=== PATIENT | female | born 1995 | race Caucasian/White ===

== ENCOUNTER 2017-04-28 17:02 | Inpatient (IN) | payer MEDICAID ==
[~2017-04-28] VITALS: Ht 157.5 cm; Wt 81.5 kg
[2017-04-28 16:45] VITALS: BP 107/70
[~2017-04-28 17:02] MED LIST: IBUP-1222 PO; OXYC-302 PO
[2017-04-28] MEDS ORDERED: SODIUM CHLORIDE 0.9%, 500ML IVBOLUS ONE (17:30)
[2017-04-28 17:58] LABS: HCG UR SG 1.023 (1.003-1.030)
[2017-04-28] MEDS ORDERED: ALBUTEROL SULFATE 2.5 MG/3 ML NPPB PRN (18:00)
[2017-04-28] MEDS ORDERED: ONDANSETRON 2MG/ML, 2ML IV PRN (18:00)
[2017-04-28] MEDS ORDERED: OXYcodone IR 5MG TABLET PO PRN (18:00)
[2017-04-28] MEDS ORDERED: SODIUM CHLORIDE 0.9% 1,000ML IVBOLUS ONE (18:00)
[2017-04-28] MEDS ORDERED: AMPICILLIN/SULBACTAM 3 GM in SODIUM CHLORIDE 0.9% 100 ML IV SCH (18:00)
[2017-04-28 18:27] LABS: MEAN CORPUSCULAR HEMOGLOBIN 29.1 pg (27.0-34.8); MEAN CORPUSCULAR HGB CONC 33.9 g/dL (32.4-35.8); MEAN CORPUSCULAR VOLUME 85.6 fL (80-100); MEAN PLATELET VOLUME 9.1 fL (7.4-10.4); PLATELET COUNT 231 x10^3/uL (130-400); RED BLOOD COUNT 4.36 x10^6/uL (3.82-5.3); RED CELL DISTRIBUTION WIDTH 14.1 % (9.6-15.2)
[2017-04-28 18:36] LABS: ALBUMIN 3.4 g/dL (3.4-5.0); ANION GAP 10 mmol/L (5-15); CALCIUM 8.1 mg/dL (8.5-10.1); CHLORIDE 111 mmol/L (98-107)
[2017-04-28 18:41] LABS: ALANINE AMINOTRANSFERASE 32 U/L (12-78); ALKALINE PHOSPHATASE 103 U/L (45-117); BILIRUBIN,TOTAL 1.4 mg/dL (0.2-1.0); CREATININE 0.68 mg/dL (0.55-1.02); TOTAL PROTEIN 7.3 g/dL (6.4-8.2)
[2017-04-28 18:47] LABS: MD YES
[2017-04-28 18:50] LABS: <PLATELET ESTIMATE> ADEQUATE; <PLT MORPHOLOGY> NORMAL PLT MORPH; <RBC MORPHOLOGY> NORMAL; BAND#(MANUAL) 3.36 x10^3/uL; BANDS%(MANUAL) 15 % (0-7); LYMPH#(MANUAL) 0.67 x10^3/uL (1-3.4); LYMPHS% (MANUAL) 3 % (22-44); MONOS#(MANUAL) 0.67 x10^3/uL (0.3-2.7); MONOS% (MANUAL) 3 % (2-9); SEGS% (MANUAL) 79 % (42-75)
[2017-04-28 19:45] VITALS: BP 97/61
[2017-04-28] MEDS: AMPICILLIN/SULBACTAM 3 GM in SODIUM CHLORIDE 0.9% 100 ML IV SCH (19:49)
[2017-04-28] MEDS ORDERED: PROMETHAZINE 25 MG SUPP PR PRN (21:00)
[2017-04-28] MEDS ORDERED: HYDROmorphone 2 MG/ML, 1ML ONE (21:07)
[2017-04-28] MEDS ORDERED: PROCHLORPERAZINE 25 MG SUPP PR ONE (21:08)
[2017-04-28] MEDS: LACTATED RINGERS 1,000 ML IV SCH (21:13)
[2017-04-28] MEDS: HYDROmorphone 1 MG/ML, 1ML IV PRN (21:13)
[2017-04-28] MEDS ORDERED: OMNIPAQUE 350 MG/ML, 100ML BOTTLE ONE (23:54)
[2017-04-29] MEDS ORDERED: HYDROmorphone 2 MG/ML, 1ML ONE ×3 (00:57→11:50)
[2017-04-29] MEDS: HYDROmorphone 1 MG/ML, 1ML IV PRN ×3 (01:01→11:53)
[2017-04-29] MEDS: AMPICILLIN/SULBACTAM 3 GM in SODIUM CHLORIDE 0.9% 100 ML IV SCH ×4 (02:13→23:37)
[2017-04-29 03:03] LABS: MICROSCOPIC INDICATED
[2017-04-29 04:05] VITALS: BP 98/55
[2017-04-29] MEDS: ACETAMINOPHEN 325 MG TABLET PO PRN (04:18)
[2017-04-29 04:22] LABS: HCT (SEDRATE) 33.6 % (34.6-47.8)
[2017-04-29 07:24] VITALS: BP 84/54
[2017-04-29] MEDS: LACTATED RINGERS 1,000 ML IV SCH (08:49)
[2017-04-29] MEDS ORDERED: D5%-LACTATED RINGERS 1,000 ML IV SCH (09:00)
[2017-04-29] MEDS ORDERED: SUCCINYLCHOLINE 20 MG/ML, 10ML ONE (10:46)
[2017-04-29] MEDS ORDERED: PROPOFOL 10 MG/ML, 20ML ONE (10:46)
[2017-04-29] MEDS ORDERED: ROCURONIUM 10 MG/ML,10ML ONE (10:46)
[2017-04-29] MEDS ORDERED: DEXAMETHASONE 4 MG/ML, 1ML ONE (10:46)
[2017-04-29] MEDS ORDERED: ONDANSETRON 2MG/ML, 2ML ONE (10:46)
[2017-04-29] MEDS ORDERED: KETOROLAC 30 MG/1 ML ONE (10:46)
[2017-04-29] MEDS ORDERED: EPINEPHRINE 1 MG/ML, 1ML ONE (13:34)
[2017-04-29] MEDS ORDERED: LIDOCAINE 1%, 20ML ONE (13:34)
[2017-04-29] MEDS ORDERED: VASOPRESSIN 20 UNIT/ML, 1ML ONE (13:35)
[2017-04-29] MEDS ORDERED: OXYTOCIN 10 UNITS/ML, 1ML ONE (13:43)
[2017-04-29] MEDS ORDERED: METHYLERGONOVINE 0.2 MG/ML IM ONE (13:43)
[2017-04-29] MEDS ORDERED: MISOPROSTOL 200 MCG TABLET ONE (13:44)
[2017-04-29] MEDS ORDERED: FENTANYL PF 100 MCG/2ML ONE (14:38)
[2017-04-29] MEDS ORDERED: MIDAZOLAM 1 MG/ML, 2ML ONE (14:39)
[2017-04-29] MEDS ORDERED: LABETALOL 5MG/ML, 20ML IV PRN (15:00)
[2017-04-29] MEDS ORDERED: PROMETHAZINE 12.5 MG SUPP PR PRN (15:00)
[2017-04-29] MEDS ORDERED: MIDAZOLAM 1 MG/ML, 2ML IV PRN (15:00)
[2017-04-29] MEDS ORDERED: ACETAMINOPHEN 325 MG TABLET PO PRN (15:00)
[2017-04-29] MEDS ORDERED: OXYcodone 5 MG/5 ML ORAL.SOL UDC PO PRN ×2 (15:00→17:30)
[2017-04-29] MEDS ORDERED: HYDROmorphone 1 MG/ML, 1ML IV PRN ×3 (15:00→17:30)
[2017-04-29] MEDS ORDERED: ONDANSETRON 2MG/ML, 2ML IVPush PRN (15:00)
[2017-04-29] MEDS ORDERED: hydrALAzine 20 MG/ML, 1ML IV PRN (15:00)
[2017-04-29] MEDS ORDERED: FENTANYL PF 100 MCG/2ML IV PRN (15:00)
[2017-04-29] MEDS ORDERED: MEPERIDINE/PF 25MG/0.5ML IVPush PRN (15:00)
[2017-04-29] MEDS ORDERED: ALBUTEROL SULFATE 2.5 MG/3 ML NPPB PRN (15:00)
[2017-04-29] MEDS ORDERED: OXYcodone 5 MG/5 ML ORAL.SOL UDC ONE (16:09)
[2017-04-29] MEDS ORDERED: ACETAMINOPHEN 650 MG/20.3 ML UDC ONE (16:09)
[2017-04-29] MEDS ORDERED: KETOROLAC 30 MG/1 ML IV PRN (17:30)
[2017-04-29] MEDS: D5%-LACTATED RINGERS 1,000 ML IV SCH (17:30)
[2017-04-29] MEDS ORDERED: PROMETHAZINE 25 MG SUPP PR ONE (17:30)
[2017-04-29] MEDS ORDERED: ONDANSETRON 2MG/ML, 2ML IV PRN (17:30)
[2017-04-29] MEDS: KETOROLAC 30 MG/1 ML IV SCH ×2 (17:41→23:37)
[2017-04-29 19:48] VITALS: BP_SYST 102; BP_SYST 121; BP_DIAS 67; BP_DIAS 81
[2017-04-30] MEDS: D5%-LACTATED RINGERS 1,000 ML IV SCH ×2 (00:47→10:19)
[2017-04-30 01:26] VITALS: BP 94/62
[2017-04-30] MEDS: AMPICILLIN/SULBACTAM 3 GM in SODIUM CHLORIDE 0.9% 100 ML IV SCH ×4 (05:34→23:36)
[2017-04-30] MEDS: KETOROLAC 30 MG/1 ML IV SCH ×2 (05:34→14:44)
[2017-04-30 07:05] VITALS: BP 93/62
[2017-04-30 07:43] LABS: BASOPHILS # (AUTO) 0.04 x10^3/uL (0-0.1); BASOPHILS % (AUTO) 0 % (0-1); EOSINOPHILS % (AUTO) 0 % (1-7); LYMPHOCYTES # (AUTO) 1.59 x10^3/uL (1-3.4); LYMPHOCYTES % (AUTO) 10 % (22-44); MD SCAN; MEAN CORPUSCULAR HEMOGLOBIN 29.3 pg (27.0-34.8); MEAN CORPUSCULAR HGB CONC 33.6 g/dL (32.4-35.8); MEAN PLATELET VOLUME 9.4 fL (7.4-10.4); MONOCYTES # (AUTO) 0.87 x10^3/uL (0.2-0.8); MONOCYTES % (AUTO) 6 % (2-9); NEUTROPHILS # (AUTO) 13.12 x10^3/uL (1.8-6.8); NEUTROPHILS % (AUTO) 84 % (42-75); PLATELET COUNT 108 x10^3/uL (130-400); RED CELL DISTRIBUTION WIDTH 14.5 % (9.6-15.2)
[2017-04-30 14:18] VITALS: BP 101/66
[2017-04-30 19:32] VITALS: BP 97/62
[2017-04-30] MEDS: SODIUM CHLORIDE FLUSH 10ML SYR IVF SCH (20:38)
[2017-04-30] MEDS: ACETAMINOPHEN 325 MG TABLET PO PRN (23:35)
[2017-05-01 02:04] VITALS: BP 101/64
[2017-05-01] MEDS: AMPICILLIN/SULBACTAM 3 GM in SODIUM CHLORIDE 0.9% 100 ML IV SCH ×4 (05:08→22:43)
[2017-05-01 08:30] VITALS: BP 107/71
[2017-05-01] MEDS: SODIUM CHLORIDE FLUSH 10ML SYR IVF SCH ×2 (10:14→21:00)
[2017-05-01 11:36] LABS: CHLORIDE 113 mmol/L (98-107)
[2017-05-01 11:37] LABS: ALANINE AMINOTRANSFERASE 25 U/L (12-78); ALBUMIN 2.3 g/dL (3.4-5.0); ANION GAP 6 mmol/L (5-15); CALCIUM 7.8 mg/dL (8.5-10.1); CREATININE 0.64 mg/dL (0.55-1.02)
[2017-05-01 11:39] LABS: ALKALINE PHOSPHATASE 70 U/L (45-117); BILIRUBIN,TOTAL 0.2 mg/dL (0.2-1.0); TOTAL PROTEIN 5.5 g/dL (6.4-8.2)
[2017-05-01 11:48] LABS: MEAN CORPUSCULAR HEMOGLOBIN 28.8 pg (27.0-34.8); MEAN CORPUSCULAR HGB CONC 33.5 g/dL (32.4-35.8); MEAN CORPUSCULAR VOLUME 86.1 fL (80-100); MEAN PLATELET VOLUME 9.9 fL (7.4-10.4); PLATELET COUNT 173 x10^3/uL (130-400); RED BLOOD COUNT 3.34 x10^6/uL (3.82-5.3); RED CELL DISTRIBUTION WIDTH 14.5 % (9.6-15.2)
[2017-05-01 11:49] LABS: MD YES
[2017-05-01 11:51] LABS: BAND#(MANUAL) 0.43 x10^3/uL; BANDS%(MANUAL) 3 % (0-7); LYMPH#(MANUAL) 2.72 x10^3/uL (1-3.4); LYMPHS% (MANUAL) 19 % (22-44); MONOS#(MANUAL) 0.14 x10^3/uL (0.3-2.7); MONOS% (MANUAL) 1 % (2-9); SEG#(MANUAL) 11.01 x10^3/uL (1.8-6.8); SEGS% (MANUAL) 77 % (42-75)
[2017-05-01 11:52] LABS: ANISOCYTOSIS 1+; POLYCHROMASIA 1+; SPHEROCYTES 1+
[2017-05-01 11:53] LABS: <PLATELET ESTIMATE> ADEQUATE; <PLT MORPHOLOGY> NORMAL PLT MORPH
[2017-05-01 14:30] VITALS: BP 109/74
[2017-05-01] MEDS: HYDROmorphone 2MG TABLET PO PRN ×2 (17:51→22:38)
[2017-05-01 20:13] VITALS: BP 114/71
[2017-05-02 01:25] VITALS: BP 104/66
[2017-05-02 04:26] LABS: BASOPHILS # (AUTO) 0.04 x10^3/uL (0-0.1); BASOPHILS % (AUTO) 0 % (0-1); EOSINOPHILS # (AUTO) 0.11 x10^3/uL (0-0.4); EOSINOPHILS % (AUTO) 1 % (1-7); LYMPHOCYTES # (AUTO) 4.15 x10^3/uL (1-3.4); LYMPHOCYTES % (AUTO) 34 % (22-44); MD NO; MEAN CORPUSCULAR VOLUME 85.3 fL (80-100); MEAN PLATELET VOLUME 9.6 fL (7.4-10.4); MONOCYTES # (AUTO) 0.78 x10^3/uL (0.2-0.8); MONOCYTES % (AUTO) 6 % (2-9); NEUTROPHILS # (AUTO) 7.31 x10^3/uL (1.8-6.8); NEUTROPHILS % (AUTO) 59 % (42-75); PLATELET COUNT 191 x10^3/uL (130-400); RED BLOOD COUNT 3.38 x10^6/uL (3.82-5.3); RED CELL DISTRIBUTION WIDTH 13.8 % (9.6-15.2)
[2017-05-02] MEDS: AMPICILLIN/SULBACTAM 3 GM in SODIUM CHLORIDE 0.9% 100 ML IV SCH ×4 (04:46→23:28)
[2017-05-02 07:33] VITALS: BP 103/72
[2017-05-02] MEDS ORDERED: POTASSIUM CHLORIDE 30 MEQ in LACTATED RINGERS 1,000 ML IV SCH (10:30)
[2017-05-02] MEDS: SODIUM CHLORIDE FLUSH 10ML SYR IVF SCH ×2 (10:36→20:23)
[2017-05-02 14:17] VITALS: BP 111/70
[2017-05-02] MEDS: IBUPROFEN 200 MG TABLET PO PRN (18:14)
[2017-05-02 19:12] VITALS: BP 115/75
[2017-05-02] MEDS ORDERED: OMEPRAZOLE 20 MG CAPSULE.DR PO ONE (20:00)
[2017-05-02] MEDS: SODIUM CHLORIDE FLUSH 3ML SYRINGE IVF SCH (20:23)
[2017-05-03 00:46] VITALS: BP 100/64
[2017-05-03] MEDS: AMPICILLIN/SULBACTAM 3 GM in SODIUM CHLORIDE 0.9% 100 ML IV SCH ×4 (04:58→23:22)
[2017-05-03 07:18] VITALS: BP 106/64
[2017-05-03] MEDS: OMEPRAZOLE 20 MG CAPSULE.DR PO SCH (07:54)
[2017-05-03] MEDS: SODIUM CHLORIDE FLUSH 10ML SYR IVF SCH ×2 (07:54→23:22)
[2017-05-03] MEDS: SODIUM CHLORIDE FLUSH 3ML SYRINGE IVF SCH ×2 (09:00→23:22)
[2017-05-03 12:17] VITALS: BP 129/84
[2017-05-03 12:41] LABS: MICROSCOPIC NOT IND
[2017-05-03] MEDS: IBUPROFEN 200 MG TABLET PO PRN (16:16)
[2017-05-03 18:50] VITALS: BP 116/78
[2017-05-04 03:45] VITALS: BP 102/65
[2017-05-04] MEDS: AMPICILLIN/SULBACTAM 3 GM in SODIUM CHLORIDE 0.9% 100 ML IV SCH ×4 (05:11→22:37)
[2017-05-04 08:05] VITALS: BP 104/64
[2017-05-04] MEDS: SODIUM CHLORIDE FLUSH 10ML SYR IVF SCH ×2 (08:53→22:37)
[2017-05-04] MEDS: SODIUM CHLORIDE FLUSH 3ML SYRINGE IVF SCH ×2 (08:54→21:00)
[2017-05-04] MEDS: OMEPRAZOLE 20 MG CAPSULE.DR PO SCH (08:54)
[2017-05-04 13:54] VITALS: BP 116/76
[2017-05-04 20:04] VITALS: BP 117/72
[2017-05-05 04:53] VITALS: BP 110/70
[2017-05-05] MEDS: AMPICILLIN/SULBACTAM 3 GM in SODIUM CHLORIDE 0.9% 100 ML IV SCH ×2 (05:07→11:11)
[2017-05-05 06:04] LABS: ALBUMIN 2.8 g/dL (3.4-5.0); ANION GAP 7 mmol/L (5-15); CALCIUM 8.5 mg/dL (8.5-10.1); CHLORIDE 110 mmol/L (98-107)
[2017-05-05 06:13] LABS: ALANINE AMINOTRANSFERASE 64 U/L (12-78); ALKALINE PHOSPHATASE 75 U/L (45-117); BILIRUBIN,TOTAL 0.4 mg/dL (0.2-1.0); CREATININE 0.65 mg/dL (0.55-1.02); TOTAL PROTEIN 6.6 g/dL (6.4-8.2)
[2017-05-05 06:19] LABS: BASOPHILS # (AUTO) 0.05 x10^3/uL (0-0.1); BASOPHILS % (AUTO) 0 % (0-1); EOSINOPHILS % (AUTO) 4 % (1-7); LYMPHOCYTES % (AUTO) 23 % (22-44); MD NO; MEAN CORPUSCULAR HEMOGLOBIN 29.6 pg (27.0-34.8); MEAN CORPUSCULAR HGB CONC 34.3 g/dL (32.4-35.8); MEAN CORPUSCULAR VOLUME 86.4 fL (80-100); MEAN PLATELET VOLUME 8.4 fL (7.4-10.4); MONOCYTES # (AUTO) 0.76 x10^3/uL (0.2-0.8); MONOCYTES % (AUTO) 5 % (2-9); NEUTROPHILS # (AUTO) 11.05 x10^3/uL (1.8-6.8); NEUTROPHILS % (AUTO) 68 % (42-75); PLATELET COUNT 347 x10^3/uL (130-400); RED BLOOD COUNT 3.98 x10^6/uL (3.82-5.3); RED CELL DISTRIBUTION WIDTH 14.1 % (9.6-15.2)
[2017-05-05 06:36] LABS: HCT (SEDRATE) 28.8 % (34.6-47.8)
[2017-05-05 07:23] VITALS: BP 105/65
[2017-05-05] MEDS: SODIUM CHLORIDE FLUSH 3ML SYRINGE IVF SCH (08:04)
[2017-05-05] MEDS: OMEPRAZOLE 20 MG CAPSULE.DR PO SCH (08:04)
[2017-05-05] MEDS: SODIUM CHLORIDE FLUSH 10ML SYR IVF SCH (09:37)
[2017-05-05] MEDS ORDERED: LIDOCAINE 1%, 10ML ONE (12:06)
[2017-05-05] MEDS ORDERED: ERTAPENEM 1 GM IM ONE (12:30)
[2017-05-05] MEDS ORDERED: ERTAPENEM 1 GM in SODIUM CHLORIDE 0.9% 50 ML IV SCH (12:30)
== END 2017-05-05 15:25 | disposition home or self-care (01) | DRG 854 ==
LOC: 3NW 17:02
PROVIDERS: ADMIT Specialist; ATTEND Specialist
PROC: 0UDB8ZZ Extraction of Endometrium, Via Natural or Artificial Opening Endoscopic (ICD-10-PCS; principal; 2017-04-29 12:00)
PROC: 0U9 Female Reproductive System, Drainage (ICD-10-PCS; 2017-04-29 12:00)
PROC: 02HV33Z Insertion of Infusion Device into Superior Vena Cava, Percutaneous Approach (ICD-10-PCS; 2017-05-02)
PROC: B5181ZA Fluoroscopy of Superior Vena Cava using Low Osmolar Contrast, Guidance (ICD-10-PCS; 2017-05-02)
PROC: B548ZZA Ultrasonography of Superior Vena Cava, Guidance (ICD-10-PCS; 2017-05-02)
DX: A41.9 Sepsis, unspecified organism (principal); A42.9 Actinomycosis, unspecified; D64.9 Anemia, unspecified; J45.909 Unspecified asthma, uncomplicated; N87.1 Moderate cervical dysplasia; B95.4 Other streptococcus as the cause of diseases classified elsewhere; N92.6 Irregular menstruation, unspecified; R93.8 Abnormal findings on diagnostic imaging of other specified body structures; Z90.49 Acquired absence of other specified parts of digestive tract
CPT/HCPCS: 36415; 36569; 71045; 71046; 74177; 76830; 76937; 77001; 80053; 81001; 81003; 81025; 83605; 84145; 85025; 85651; 86140; 87015; 87040; 87070; 87075; 87076; 87077; 87086; 87102; 87116; 87205; 87206; 88305; 99285; J0171; J0295; J1100; J1170; J1335; J1885; J2250; J2405; J2704; J3010; J3480; J3490; Q9967; C1751; J0330; J2210; J2590; J7030; J7120; J7121